=== PATIENT | female | born 1960 | race Caucasian/White ===

== ENCOUNTER 2020-12-14 14:19 | Emergency (ER) | payer OTHER, SELFPAY ==
[2020-12-14 14:52] VITALS: BP 135/81; PULSE 75; RESP 20; TEMP 36.6; O2SAT 97
[2020-12-14] MEDS: methylPREDNISolone ACETATE 40 MG/ML VIAL 80 MG IM (15:11)
--- NOTE | 2020-12-14 15:14 | ED.EYEPROB ---
HPI - Eye Problem General Chief complaint: Eye Problems Stated complaint: eyes swollen Source: patient Mode of arrival: ambulatory Limitations: no limitations History of Present Illness HPI Narrative: this is a 60-year-old female that presents with some a rash located on around her eyes and and face in patches on lower extremities with no fever or chills no nausea vomiting no abdominal pain no audible wheezing no shortness of breath. chief complaint: other ( Periorbital redness and itching) Onset (ago): hour(s) Place: street/outdoors Mechanism: other ( poison harmony) Severity: mild Related Data Allergies Allergy/AdvReac Type Severity Reaction Status Date / Time No Known Allergies Allergy Verified 12/14/20 14:59 Review of Systems Review of Systems: All systems reviewed & are unremarkable except as noted in HPI and below PMFSH Past Medical History Medical History Patient denies medical problems Social History Social History Smoking status: Former smoker Exam Const: General: no acute distress and alert Orientation/consciousness: patient oriented x3 HENMT: Head: normal to inspection Eyes: Other: periorbital rash itchy mildly swollen Neck: Neck: normal visual inspection, no lymphadenopathy and no meningeal signs Chest: Chest palpation & inspection: normal inspection of the chest Resp: Effort & Inspection: normal respiratory effort Cardio: Rate: regular rate Rhythm: regular rhythm : General: Yes no CVA tenderness Back/Spine/Pelvis: Back: no CVA tenderness Neuro: General: patient oriented x3 Extrem: General: normal to inspection and no pedal edema Psych: Mental Status: mental status grossly normal Affect: normal affect Course Course Emergency Course: patient received IM Depo-Medrol feels better advised to take medicine as prescribed. Vital Signs Vital signs: Vital Signs Temperature 36.6 C 12/14/20 14:52 Pulse Rate 75 12/14/20 14:52 Respiratory Rate 12/14/20 14:52 Blood Pressure 135/81 12/14/20 14:52 Pulse Oximetry 97 12/14/20 14:52 Temperature 36.6 C 12/14/20 14:52 Pulse Rate 75 12/14/20 14:52 Respiratory Rate 20 12/14/20 14:52 Blood Pressure 135/81 12/14/20 14:52 Pulse Oximetry 97 12/14/20 14:52 Critical Care Time Critical Care Time Critical Care Time: No Discharge Plan Discharge Clinical Impression: Poison harmony dermatitis Patient Disposition: Home, Self-Care Condition: Stable Instructions: Antibiotic Form, Poison Harmony (ED) Additional Instructions: take medicine as prescribed and follow-up with primary care physician if symptoms persist or worsen. Prescriptions: New methylprednisolone [Medrol ([place])] 4 mg tablets,dose pack See Rx Instructions .ROUTE .COMPLEX Qty: 21 RF: 0 triamcinolone acetonide 0.1 % ointment 1 applic topical BID Qty: 15 RF: 0 Follow-up/Referrals: UNKNOWN,DOCTOR [Primary Care Provider] - Time of Disposition: 15:18
[2020-12-14 15:19] VITALS: BP 126/68; PULSE 72; RESP 20; TEMP 36.7; O2SAT 98
== END 2020-12-14 15:26 | disposition home or self-care (01) ==
PROVIDERS: Emergency Provider Emergency Medicine
DX: L23.7 Allergic contact dermatitis due to plants, except food (principal)
CPT/HCPCS: 96372; 99283; J1030